=== PATIENT | female | born 1965 | race Caucasian/White ===

== ENCOUNTER 2020-09-12 08:52 | Emergency (ER) | payer OTHER ==
[~2020-09-12] VITALS: Ht 167.6 cm; Wt 63.5 kg
[2020-09-12 09:03] VITALS: BP 126/75
--- NOTE | 2020-09-12 09:05 | NUR ---
patient bibs c/o left foot itching, [place] the [place] x 1 [place]. aox4 , no sob noted. no c/o pain at this time. respirations even and unlabored. will ccontinue with plan of care
[2020-09-12] MEDS ORDERED: HYDR-500 PO (09:30)
[2020-09-12] MEDS ORDERED: CLOT15CR5 TP (09:30)
== END 2020-09-12 09:43 | disposition home or self-care (01) ==
LOC: ER 08:52
DX: L30.9 Dermatitis, unspecified (principal); B35.3 Tinea pedis